=== PATIENT | female | born 1975 | race African-American/Black ===

== ENCOUNTER 2019-06-25 02:38 | Emergency (ER) | payer SELFPAY ==
[~2019-06-25] VITALS: Ht 175.3 cm; Wt 79.4 kg
[2019-06-25 02:46] VITALS: Ht 175.3 cm; Wt 79.4 kg
[2019-06-25 07:13] VITALS: BP 116/89
== END 2019-06-25 07:14 | disposition home or self-care (01) ==
LOC: ED 02:38
DX: M79.671 Pain in right foot (principal); M79.672 Pain in left foot; F31.9 Bipolar disorder, unspecified; Z59.0 Homelessness

== ENCOUNTER 2019-06-25 23:03 | Emergency (ER) | payer SELFPAY ==
[~2019-06-25] VITALS: Ht 167.6 cm; Wt 57.6 kg
[2019-06-25 23:14] VITALS: Ht 167.6 cm; Wt 57.6 kg
[2019-06-26 02:13] VITALS: BP 119/83
== END 2019-06-26 02:13 | disposition home or self-care (01) ==
LOC: ED 23:03
DX: G89.29 Other chronic pain (principal); M54.9 Dorsalgia, unspecified